=== PATIENT | female | born 1965 | race American Indian/Alaskan Native ===

== ENCOUNTER 2018-08-12 08:04 | Emergency (ER) | payer OTHER ==
[2018-08-12 08:12] VITALS: BP 142/101
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
--- NOTE | 2018-08-12 09:15 | XRay Report ---
RIGHT FEMUR: HISTORY: right leg pain. AP and lateral views of the femur demonstrate normal mineralization and contours for this patient's age. No destructive changes are noted and the adjacent soft tissues are normal. IMPRESSION: Normal right femur.
== END 2018-08-12 09:28 | disposition home or self-care (01) ==
LOC: ED 08:04
DX: M54.2 Cervicalgia (principal); R51 Headache; M79.604 Pain in right leg; I10 Essential (primary) hypertension; F12.10 Cannabis abuse, uncomplicated; Z98.51 Tubal ligation status; V89.2XXA Person injured in unspecified motor-vehicle accident, traffic, initial encounter; Y93.89 Activity, other specified; Y92.488 Other paved roadways as the place of occurrence of the external cause; Y99.8 Other external cause status
CPT/HCPCS: 70450; 72125; 99283